=== PATIENT | male | born 1935 | race Caucasian/White ===

== ENCOUNTER 2017-07-23 12:22 | Emergency (ER) | payer MEDICARE, BC ==
--- NOTE | 2017-07-24 11:00 | ER ---
ADMIT: 07/23/2017 RM/LOC: ER [facility] MR#: [id number] [address] [facility] [address] [place], [place] [id number] CHAVEZ HANKS [address] [place] [address] Emergency Room Report SEX: M AGE: 81 : 1935 DATE: 07/23/2017 CHIEF COMPLAINT: "I need an enema." HISTORY OF PRESENT ILLNESS: An 81-year-old white male, who presents to the ER with complaints of constipation. States he has not had a bowel movement for the past 6 days. He states he is still passing gas. He denies rogelio abdominal pain, nausea, or vomiting. States he has been trying to have bowel movements. He is straining, it makes him dizzy, lightheaded, and sweaty. However, no other times he is experiencing this. He has some vague left lower quadrant abdominal tenderness to palpation. However, he states this is chronic in nature of 25+ years. His belly feels very full. He has a loss of appetite. No fevers, chills, diarrhea, back pain. He was recently diagnosed with an ilium fracture here in the ER. He was given tramadol, states he followed with primary care provider, it sounds like he may have started him on some narcotic pain medicines, possibly contributing to his constipation. PAST MEDICAL HISTORY: Hyperlipidemia, asthma, and gout. He has had a left hip replacement. COURSE IN THE EMERGENCY ROOM: The patient was seen and examined. GENERAL: Afebrile, nontoxic, in no acute distress. CHEST: Clear. HEART: Regular. ABDOMEN: Distended. He does have some left lower quadrant tenderness. No guarding or rebound. No McBurney's point tenderness. SKIN: Warm and dry. EXTREMITIES: Nontender. No pedal. NEUROLOGICAL: He is alert and oriented. KUB was obtained, which shows nonspecific bowel gas pattern. He does have moderate stool burden. LABORATORY STUDIES: Hemoglobin stable anemia at 13.5, platelets 145. Chemistries; BUN 28, creatinine 2.0, mildly increased from his baseline of 1.7 drawn earlier in June. While in Department, did receive a Fleet Enema. He was allowed to sit for a period of time. Subsequently had a bowel movement, feeling improved and ready ADMIT: 07/23/2017 RM/LOC: [facility] MR#: [id number] [address] [facility] [address] [place], [place] [id number] CHAVEZ HANKS [address] [facility] [place] [address] Emergency Room Report SEX: M AGE: 81 : 1935 for discharge. CLINICAL IMPRESSION: 1. Constipation. 2. Chronic kidney disease. 3. Anemia. DISPOSITION: He is discharged home. Increase fluids. High-fiber foods. Recommended [id number] MiraLax if he has persistent problems with constipation. He is to follow up with primary care provider with concerns. He is also discharged home to return with worsening signs or symptoms. VALENTIN Arnold / Andrea Urias MD / modl JOB #: [id number] CC: Andrea Urias MD, Attending Physician UNKNOWN, Family Physician
== END 2017-07-23 14:40 | disposition home or self-care (01) ==
LOC: ER 12:22
DX: K59.00 Constipation, unspecified (principal); E78.5 Hyperlipidemia, unspecified; J45.909 Unspecified asthma, uncomplicated; Z98.890 Other specified postprocedural states; Z79.899 Other long term (current) drug therapy